=== PATIENT | female | born 1990 | race Caucasian/White ===

== ENCOUNTER → 2016-12-23 | Outpatient (REF) | payer OTHER | LOC: M SFHCLERA 09:40 | PROVIDERS: ATTEND Nurse Practitioner Family | DX: R30.0 Dysuria (principal) ==

== ENCOUNTER → 2016-12-24 | Outpatient (REF) | payer OTHER | LOC: M SFHCLERA 16:09 | PROVIDERS: ATTEND Physician Assistant | DX: R30.0 Dysuria (principal) ==

== ENCOUNTER → 2019-04-25 | Outpatient (REF) | payer OTHER ==
[2019-04-25 23:03] LABS: CHLAMYDIA DNA AMPLIFICATION NEGATIVE (NEGATIVE); GC DNA AMPLIFICATION NEGATIVE (NEGATIVE)
== END ==
LOC: M SFHCLERA 14:07
PROVIDERS: ATTEND Nurse Practitioner Family
DX: R30.0 Dysuria (principal)

== ENCOUNTER → 2019-05-27 | Outpatient (REF) | payer OTHER ==
[2019-05-27 21:50] LABS: CHLAMYDIA DNA AMPLIFICATION NEGATIVE (NEGATIVE); GC DNA AMPLIFICATION NEGATIVE (NEGATIVE)
== END ==
LOC: M LAB REF 10:49
PROVIDERS: ATTEND Physician Assistant
DX: N76.0 Acute vaginitis (principal)

== ENCOUNTER → 2020-10-02 | Outpatient (CLI) | payer OTHER ==
--- NOTE | 2020-10-02 13:36 | PFTRPT ---
Visit Date: 10/02/2020 Referring Doctor: Eula Piña NP Height: 61.00 Inches Weight: 125.00 Lbs BSA: 1.55 Diagnosis: F17.210 Pre and post bronchodilator studies have excellent technical quality. Forced vital capacity is normal. FEV1 is in proportion. Obstructive index is therefore normal. Expiratory limit of the flow-volume loop is normal. No significant bronchodilator response is identified. Total lung capacity is normal. Residual volume is in proportion. Diffusing capacity is normal. No hemoglobin available for correction. Airway resistance and conductance are normal. IMPRESSION: Normal study. MTDD
== END ==
LOC: M CARPUL 10:58
PROVIDERS: ATTEND Nurse Practitioner Adult Health
DX: F17.210 Nicotine dependence, cigarettes, uncomplicated (principal); Z80.8 Family history of malignant neoplasm of other organs or systems

== ENCOUNTER 2022-07-23 16:22 | Emergency (ER) | payer OTHER ==
[~2022-07-23] VITALS: Ht 154.9 cm; Wt 52.3 kg
[2022-07-23] MEDS ORDERED: NITR100C2 (16:47)
[2022-07-23] MEDS ORDERED: HYDR-3363 PO (22:13)
[2022-07-23 22:35] VITALS: BP 148/94
== END 2022-07-23 22:38 | disposition home or self-care (01) ==
LOC: M ED 16:22
DX: F41.9 Anxiety disorder, unspecified (principal); F32.A Depression, unspecified; F17.200 Nicotine dependence, unspecified, uncomplicated; F10.10 Alcohol abuse, uncomplicated; Z63.0 Problems in relationship with spouse or partner; Z79.899 Other long term (current) drug therapy

== ENCOUNTER → 2023-03-25 | Outpatient (REF) | payer OTHER ==
[~2023-03-25] MED LIST: HYDR-3363 PO; NITR100C2
== END ==
LOC: M SFHCWAGY 16:49
PROVIDERS: ATTEND Nurse Practitioner Family
DX: Z12.4 Encounter for screening for malignant neoplasm of cervix (principal); N73.9 Female pelvic inflammatory disease, unspecified; R87.610 Atypical squamous cells of undetermined significance on cytologic smear of cervix (ASC-US); B37.31 Acute candidiasis of vulva and vagina